=== PATIENT | male | born 1970 | race Caucasian/White ===

== ENCOUNTER → 2018-03-06 10:01 | Outpatient (CLI) | payer OTHER, SELFPAY ==
--- NOTE | 2018-03-06 10:03 | DI.RAD.S_ITS ---
PROCEDURE: XR FOOT LT MIN 3V INDICATIONS: pain left foot 1st MTP TECHNIQUE: 3 views of the foot were acquired. COMPARISON: None. FINDINGS: Bones: No fractures or dislocations. No suspicious bony lesions. Minimal narrowing at the first MTP joint is noted consistent with degenerative change. Soft tissues: No tibiotalar joint effusion. Achilles tendon appears normal. IMPRESSION: No visualized acute fracture or dislocation. However, if clinical concern and/or pain persist, short interval imaging followup in 7-10 days is recommended, as occult injury cannot be definitively excluded. Dictated by: Oly Potter M.D. on 03/06/2018 at 10:27 Approved by: Oly Potter M.D. on 03/06/2018 at 10:28
== END ==
PROVIDERS: PCP Physician Assistant
DX: M79.672 Pain in left foot (principal)
CPT/HCPCS: 73630

== ENCOUNTER → 2019-02-09 10:59 | Outpatient (CLI) | payer OTHER, SELFPAY ==
[2019-02-09 12:39] LABS: Alanine Aminotransferase 76 IU/L (21-72); Albumin 4.7 g/dL (3.5-5.0); Albumin Globulin Ratio 1.7 (1.0-2.8); Alkaline Phosphatase 58 U/L (38-126); Aspartate Aminotransferase 44 IU/L (17-59); Bilirubin Total 0.6 mg/dL (0.2-1.3); Bilirubin Unconjugated 0.5 mg/dL (0.0-1.1); Cholesterol 255 mg/dL (140-199); Globulin 2.8 g/dL (1.7-4.1); HDL Cholesterol 58 mg/dL (40-60); HEMOLYSIS < 15 (0-50); LDL Cholesterol Calculated 166 mg/dL (<100); Total Protein 7.5 g/dL (6.3-8.2); Triglycerides 156 mg/dL (35-150)
[2019-02-11 15:42] LABS: Hepatitis B Surf Ab Qualitativ Nonreactive (Nonreactive)
== END ==
PROVIDERS: Visit Provider Nurse Practitioner Family
DX: Z02.0 Encounter for examination for admission to educational institution (principal); R74.0 Nonspecific elevation of levels of transaminase and lactic acid dehydrogenase [LDH]; I10 Essential (primary) hypertension; Z13.6 Encounter for screening for cardiovascular disorders
CPT/HCPCS: 36415; 80061; 80076; 86706

== ENCOUNTER → 2019-02-24 14:11 | Outpatient (CLI) | payer OTHER, SELFPAY ==
[2019-02-24 14:04] VITALS: BMI 24.8
== END ==
PROVIDERS: Referring Provider Nurse Practitioner Family; Visit Provider Nurse Practitioner Family
DX: E78.5 Hyperlipidemia, unspecified (principal); Z71.3 Dietary counseling and surveillance; Z68.24 Body mass index [BMI] 24.0-24.9, adult
CPT/HCPCS: 97802

== ENCOUNTER → 2019-07-22 12:04 | Outpatient (CLI) | payer OTHER, SELFPAY ==
[2019-07-22 13:07] LABS: Alanine Aminotransferase 82 IU/L (21-72); Albumin 4.8 g/dL (3.5-5.0); Albumin Globulin Ratio 1.5 (1.0-2.8); Alkaline Phosphatase 68 U/L (38-126); Aspartate Aminotransferase 50 IU/L (17-59); Bilirubin Total 0.6 mg/dL (0.2-1.3); Bilirubin Unconjugated 0.4 mg/dL (0.0-1.1); Globulin 3.1 g/dL (1.7-4.1); HEMOLYSIS < 15 (0-50); Total Protein 7.9 g/dL (6.3-8.2)
== END ==
PROVIDERS: Visit Provider Nurse Practitioner Family
DX: R74.0 Nonspecific elevation of levels of transaminase and lactic acid dehydrogenase [LDH] (principal)
CPT/HCPCS: 36415; 80076

== ENCOUNTER 2019-09-21 08:48 | Emergency (ER) | payer OTHER, SELFPAY ==
[2019-09-21 08:50] VITALS: BP 146/102; PULSE 78; RESP 14; TEMP 36.4; O2SAT 98; BMI 25.7
--- NOTE | 2019-09-21 09:01 | DI.RAD.S_ITS ---
PROCEDURE: XR ANKLE RT MIN 3V INDICATIONS: R ankle pain x 2 weeks s/p ankle roll TECHNIQUE: 3 views of the ankle were acquired. COMPARISON: None. FINDINGS: Bones: No fractures or dislocations. Ankle mortise is normally aligned. No suspicious bony lesions. Soft tissues: No tibiotalar joint effusion. Achilles tendon appears normal. IMPRESSION: No fracture. If the patient's symptoms do not improve recommend followup radiographs in 10 days to assess for healing sclerosis/occult injury. Dictated by: Danielito Harper M.D. on 09/21/2019 at 9:24 Approved by: Danielito Harper M.D. on 09/21/2019 at 9:26
--- NOTE | 2019-09-21 09:36 | ED_ITS ---
HPI - Extremity Injury (Lower) General Chief Complaint: Extremity Injury, Lower Stated Complaint: sprain/fracture right ankle Time Seen by Provider: 09/21/19 09:25 Source: patient Mode of arrival: Ambulatory Limitations: no limitations History of Present Illness HPI Narrative: 48-year-old male here for evaluation of right ankle injury. He states that he initially injured his ankle several weeks ago. Has been wearing a ankle brace. States that things were getting well until last evening when he stood up and got a sudden pain on the outside of his right ankle. Has been icing and using the ankle brace prior to arrival. Related Data Allergies Allergy/AdvReac Type Severity Reaction Status Date / Time No Known Drug Allergies Allergy Verified 02/04/19 13:23 Review of Systems Constitutional Constitutional: Denies fever(s) Cardiovascular Cardiovascular: Denies chest pain and Denies dyspnea Respiratory Respiratory: Denies dyspnea Gastrointestinal Gastrointestinal: Denies abdominal pain Musculoskeletal Musculoskeletal: Denies tingling Comments: Right ankle pain Integumentary/Breasts Comments: No bruising Neurologic Neurologic: Denies tingling and Denies paresthesias Hematologic/Lymphatic Hematologic/Lymphatic: Denies easy bleeding and Denies easy bruising Patient History Medical History Essential hypertension (Inactive 2016) Social History Smoking Status: Current every day smoker Tobacco: How many years used: 25 second hand exposure: No alcohol intake: current substance use type: does not use alcohol intake frequency: a few times a week Alcohol type: hard liquor Substance Use Type: does not use Exam Initial Vital Signs Initial Vital Signs: Vital Signs Temperature 97.6 F 09/21/19 08:50 Pulse Rate 78 09/21/19 08:50 Respiratory Rate 14 09/21/19 08:50 Blood Pressure 146/102 H 09/21/19 08:50 Pulse Oximetry 98 09/21/19 08:50 Const General: cooperative and comfortable Orientation: alert and awake HENNC Head: normal to inspection and normocephalic Cardio Pulses: dorsalis pedis present on the right Skin Lesions: no lesions Rashes: no rashes Neuro Cognition: normal cognition Speech: speech normal Sensory Exam: no sensory deficits noted Extrem General: normal to inspection and capillary refill normal Other: Proximal fibula unremarkable. Achilles unremarkable on the right. Medial malleolus unremarkable on the right. Foot unremarkable on the right. Base of the 5th unremarkable on the right. Tenderness to palpation along the lateral malleolus on the right. Can flex and extend the ankle but with some discomfort Psych Appearance: grossly normal and well kempt Course Orders Ordered: ED Orders 09/21/19 09:01 XR ankle RT min 3V Stat Vital Signs Vital signs: Vital Signs - 8 hr 09/21/19 08:50 Temperature 97.6 F Pulse Rate 78 Respiratory Rate 14 Blood Pressure 146/102 H Pulse Oximetry 98 MDM - Extremity Injury (Lower) Imaging Data Ankle x-ray: Radiologist's impression: [address] [address] XRay Report Signed Patient: Toshia Flores#: [id number] : 1970Acct:[id number] Age/Sex: 48 / MDate of Service: 09/21/19 Loc: ED Accession Number: [id number] Procedure: XR ankle RT min 3V Ordering Provider: Luciano Jackson D.O. PROCEDURE: XR ANKLE RT MIN 3V INDICATIONS: R ankle pain x 2 weeks s/p ankle roll TECHNIQUE: 3 views of the ankle were acquired. COMPARISON: None. FINDINGS: Bones: No fractures or dislocations. Ankle mortise is normally aligned. No suspicious bony lesions. Soft tissues: No tibiotalar joint effusion. Achilles tendon appears normal. IMPRESSION: No fracture. If the patient's symptoms do not improve recommend followup radiographs in 10 days to assess for healing sclerosis/occult injury. Dictated by: Danielito Harper M.D. on 09/21/2019 at 9:24 Approved by: Danielito Harper M.D. on 09/21/2019 at 9:26 [facility] Narrative Medical decision making narrative: No fractures or dislocations. Patient is neurovascularly intact. He does have a home ankle brace which she is using. No indication for crutches. Patient given return precautions and follow-up instructions. He expressed understanding and agreement plan. Discharge Plan Departure Patient Disposition: Home Clinical Impression: Ankle sprain and strain Instructions: DI for Ankle Sprain, How To Perform RICE (Rest, Ice, Compress, Elevate), How to Apply an Elastic Wrap on Ankle Activity Restrictions/Additional Instructions: Contact your primary provider for follow-up. You can walk on your ankle as needed. Return to the emergency department for any new or worsening symptoms Referrals: Gabo Caba ARNP [Primary Care Provider] -
== END 2019-09-21 09:43 | disposition home or self-care (01) ==
PROVIDERS: Emergency Provider Emergency Medicine; PCP Nurse Practitioner Family
DX: S93.401A Sprain of unspecified ligament of right ankle, initial encounter (principal); X50.9XXA Other and unspecified overexertion or strenuous movements or postures, initial encounter
CPT/HCPCS: 73610; 99282; 99283

== ENCOUNTER → 2020-08-16 | Outpatient (CLI) | payer OTHER, SELFPAY | PROVIDERS: Referring Provider Internal Medicine; Visit Provider Internal Medicine | DX: Z23 Encounter for immunization (principal) | CPT/HCPCS: 90471; 90686 ==

== ENCOUNTER → 2021-07-17 12:22 | Outpatient (CLI) | payer OTHER, SELFPAY ==
[2021-07-17 15:55] LABS: COVID19 -Nasal RAPID Negative (Negative)
== END ==
PROVIDERS: Referring Provider Nurse Practitioner Family; Visit Provider Nurse Practitioner Family
DX: Z20.822 Contact with and (suspected) exposure to COVID-19 (principal); R05 Cough; R09.89 Other specified symptoms and signs involving the circulatory and respiratory systems; R43.2 Parageusia; R50.9 Fever, unspecified; R52 Pain, unspecified
CPT/HCPCS: 87635

== ENCOUNTER → 2021-09-22 19:50 | Outpatient (CLI) | payer OTHER, SELFPAY | PROVIDERS: Referring Provider Internal Medicine; Visit Provider Internal Medicine | DX: Z23 Encounter for immunization (principal) | CPT/HCPCS: 90471; 90686 ==

== ENCOUNTER → 2022-09-06 11:53 | Outpatient (CLI) | payer OTHER, SELFPAY | PROVIDERS: Referring Provider Internal Medicine; Visit Provider Internal Medicine | DX: Z23 Encounter for immunization (principal) | CPT/HCPCS: 90471; 90686 ==

== ENCOUNTER → 2023-08-05 14:39 | Outpatient (CLI) | payer OTHER, SELFPAY | PROVIDERS: Referring Provider Family Medicine; Visit Provider Family Medicine | DX: Z23 Encounter for immunization (principal) | CPT/HCPCS: 90471; 90686 ==

== ENCOUNTER 2023-11-19 01:23 | Emergency (ER) | payer OTHER, SELFPAY ==
[2023-11-19 01:26] VITALS: BP 179/100; PULSE 67; RESP 16; TEMP 37.2; O2SAT 99; BMI 24.4
[2023-11-19] MEDS: PROPARACAINE 0.5% OPHTH SOL 1 DROPS EYE-BOTH (01:41)
--- NOTE | 2023-11-19 01:50 | PC.NURSE ---
Poison Control Center contacted at 0150: pH of patient's eye is 8. Poison Control Center recommends 10 minute irrigation, followed by assessing eye for abrasion. It is reported that these particular [employer] wipes have a low concentration of cationic detergents in them which can causes burning and if patient rubs eyes they risk getting an abrasion. updated.
[2023-11-19] MEDS: FLUORESCEIN 1 MG STRIP EYE-LEFT (02:00)
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
[2023-11-19 02:20] VITALS: BP 156/98; PULSE 71; RESP 16; O2SAT 98
[2023-11-19] MEDS: ERYTHROMYCIN OPHTH 1 GM OINT 1 APPLIC EYE-BOTH (02:20)
== END 2023-11-19 02:20 | disposition home or self-care (01) ==
PROVIDERS: Emergency Provider Emergency Medicine
DX: T49.6X1A Poisoning by otorhinolaryngological drugs and preparations, accidental (unintentional), initial encounter (principal); T26.92XA Corrosion of left eye and adnexa, part unspecified, initial encounter; T79.9XXA Unspecified early complication of trauma, initial encounter; Y99.0 Civilian activity done for income or pay
CPT/HCPCS: 99282; 99283

== ENCOUNTER → 2024-01-17 08:53 | Outpatient (CLI) | payer OTHER, SELFPAY ==
[2024-01-17 10:01] LABS: Hemoglobin A1C% w Est Avg Glu 5.3 % (4.0-6.0)
[2024-01-17 10:05] LABS: Add Manual Diff / Slide Review NO; Basophils Absolute Auto 0 /uL (0-100); Basophils Percent Auto 0.4 % (0-2); Eosinophils Absolute Auto 200 /uL (0-450); Eosinophils Percent Auto 2.2 % (2-4); Hematocrit 46.1 % (41-53); Lymphocytes Absolute Auto 2200 /uL (1100-4500); Lymphocytes Percent Auto 24.5 % (25-40); Mean Corpuscular HGB Conc 34.8 % (30-36); Mean Corpuscular Hemoglobin 31.1 PG (26-34); Mean Corpuscular Volume 89.4 fL (80-100); Monocytes Absolute Auto 800 /uL (0-900); Monocytes Percent Auto 8.5 % (3-14); Neutrophils Absolute Auto 5900 /uL (1500-7000); Neutrophils Percent Auto 64.4 % (50-75); Platelet Count 278 X10^3/uL (150-400); Red Blood Cell Count 5.16 X10^6/uL (4.5-5.9); Red Cell Distribution Width 13.5 % (11.6-14.8); White Blood Cell Count 9.1 X10^3/uL (4.5-11.0)
[2024-01-17 10:20] LABS: Alanine Aminotransferase 25 IU/L (<50); Albumin 4.2 g/dL (3.5-5.0); Albumin Globulin Ratio 1.3 (1.0-2.8); Alkaline Phosphatase 65 U/L (38-126); Aspartate Aminotransferase 25 IU/L (17-59); BUN Creatinine Ratio 13.5 (6-22); Bilirubin Total 0.7 mg/dL (0.2-1.3); Blood Urea Nitrogen 13 mg/dL (9-20); Calcium 9.7 mg/dL (8.4-10.2); Carbon Dioxide 29 mmol/L (22-32); Chloride 104 mmol/L (98-107); Cholesterol 196 mg/dL (140-199); Estimated Glomerular Filt Rate > 60 mL/min (>60); Globulin 3.2 g/dL (1.7-4.1); Glucose 93 mg/dL (70-100); HDL Cholesterol 37 mg/dL (40-60); HEMOLYSIS < 15 (0-50); LDL Cholesterol Calculated 139 mg/dL (<100); Potassium 4.2 mmol/L (3.4-5.1); Sodium 140 mmol/L (137-145); Total Protein 7.4 g/dL (6.3-8.2); Triglycerides 101 mg/dL (35-150)
[2024-01-17 10:50] LABS: Prostate Specific Antigen Scrn 0.751 ng/mL (0.1-4.0)
[2024-01-17 10:51] LABS: TSH w/ Reflex to FT4 0.38 uIU/mL (0.47-4.68)
[2024-01-17 11:09] LABS: Vitamin B12 628 pg/mL (239-931)
[2024-01-17 11:11] LABS: Hep C Virus Ab w/Reflex Quant NEGATIVE s/c (NEGATIVE)
[2024-01-17 11:16] LABS: Free T4, Direct Thyroxine 0.98 ng/dL (0.78-2.19)
== END ==
PROVIDERS: PCP Family Medicine; Referring Provider Family Medicine; Visit Provider Family Medicine
DX: Z12.5 Encounter for screening for malignant neoplasm of prostate (principal); Z72.0 Tobacco use; E78.5 Hyperlipidemia, unspecified; R20.2 Paresthesia of skin
CPT/HCPCS: 36415; 80053; 80061; 82607; 83036; 84439; 84443; 85025; 86803; G0103

== ENCOUNTER → 2024-03-05 12:40 | Outpatient (CLI) | payer OTHER, SELFPAY | PROVIDERS: Family Provider Family Medicine; PCP Family Medicine; Referring Provider Family Medicine; Visit Provider Family Medicine | DX: R20.0 Anesthesia of skin (principal); M54.50 Low back pain, unspecified; G89.29 Other chronic pain | CPT/HCPCS: 95886; 95910 ==

== ENCOUNTER 2024-04-02 09:58 | Day surgery (SDC) | payer OTHER, SELFPAY ==
[2024-04-02 11:19] VITALS: BP 143/80; PULSE 48; RESP 17; TEMP 36.2; O2SAT 99
[2024-04-02] MEDS: LACTATED RINGERS 1,000 ML 42 ML IV (11:29)
--- NOTE | 2024-04-02 11:36 | P.HP_ITS ---
History of Present Illness History of Present Illness Date Patient Seen: 04/02/24 Time Patient Seen: 11:36 Chief complaint: Screening Colonoscopy Narrative: Srinivas is a 53-year-old man who is here for colonoscopy. He has never had one before. He has no known family history of colon cancer. No major health problems. [facility] Medical History (Updated 04/02/24 @ 11:37 by Rory Garcia MD) Allergies Migraines (~1999) Fractures (~1999) Chronic back pain (~2009) Chicken pox Essential hypertension (2017) Hyperlipidemia Surgical History (Updated 02/14/24 @ 20:17 by Caitlin Jose) Anesthesia S/P excision of lipoma (~2003) Family History (Updated 02/14/24 @ 20:21 by Caitlin Jose) Father Status post double vessel coronary artery bypass Diabetes mellitus History of heart disease Hyperlipidemia Hypertension Mother Diabetes mellitus Hypertension Grandfather History of heart disease Hyperlipidemia Hypertension Stroke Grandmother Cancer Grandfather Cancer History of heart disease Hyperlipidemia Hypertension Stroke Grandmother Cancer Dementia Social History Smoking Status: Current some day smoker Tobacco: How many years used: 25 second hand exposure: No alcohol intake: current substance use type: does not use Meds Home Medications and Allergies Home Medications Medication Instructions Recorded Confirmed Type No Known Home Medications 04/02/24 04/02/24 History Allergies Allergy/AdvReac Type Severity Reaction Status Date / Time No Known Drug Allergies Allergy Verified 01/17/24 08:24 Exam Vital Signs (past 8 hours): - 04/02/24 11:19 Temperature 97.2 F L Pulse Rate 48 L Respiratory Rate 17 Blood Pressure 143/80 H Pulse Oximetry 99 Oxygen Delivery Method Room Air Oxygen Delivery Method Room Air Const General: healthy appearing Resp Effort & Inspection: normal respiratory effort Assessment & Plan Assessment and plan (1) Colon cancer screening: Status: Acute Plan We reviewed the risks and benefits of colonoscopy for colon cancer screening and he would like to proceed.
--- NOTE | 2024-04-02 12:41 | PM.OP.COLON ---
Operative Date/Time/Diagnoses Date of procedure: 04/02/24 Time of procedure: 12:41 Pre-op diagnosis: Colon cancer screening Post-op diagnosis: same Procedure & Clinicians Study performed: Colon cancer screening Surgeon: Rory Garcia Procedure Notes Procedure in detail: Surgeon: Rory Garcia MD Anesthesia: Abigail Albert DO Procedure: The patient was brought to the endoscopy suite, placed in left lateral decubitus position. The patient was connected to monitoring devices. A time-out was performed. Sedation was administered. Once the patient was adequately sedated, a digital rectal exam was performed and was normal. The scope was then inserted and advanced to the cecum where the appendiceal orifice was identified and photographed. The scope was then slowly withdrawn over greater than 6 minutes. The mucosa was thoroughly inspected. No abnormalities were found. The scope was retroflexed in the rectum. No abnormalities were seen. The scope was straightened and removed. The patient was awakened and brought to recovery. Scope withdrawal time: 8 minutes Sedation time: 16 minutes EBL: 0 Findings: Normal colon Post-procedure Recommendations: Colonoscopy in 10 years Disposition: PACU
[2024-04-02 12:42] VITALS: BP 118/77; PULSE 56; RESP 18; TEMP 36.2; O2SAT 96
[2024-04-02 12:47] VITALS: BP 122/74; PULSE 51; RESP 16; O2SAT 98
[2024-04-02 13:00] VITALS: BP 119/76; PULSE 51; RESP 15; O2SAT 100
== END 2024-04-02 13:15 | disposition home or self-care (01) ==
PROVIDERS: Family Provider Family Medicine; PCP Family Medicine; Referring Provider Surgery; Visit Provider Surgery
PROC: 0DJD8ZZ Inspection of Lower Intestinal Tract, Via Natural or Artificial Opening Endoscopic (ICD-10-PCS; CPT 45378; principal; 2024-04-02 10:45)
DX: Z12.11 Encounter for screening for malignant neoplasm of colon (principal)
CPT/HCPCS: 45378; J2704

== ENCOUNTER → 2024-09-25 10:27 | Outpatient (CLI) | payer OTHER, SELFPAY ==
--- NOTE | 2024-09-25 10:29 | DI.RAD.S_ITS ---
PROCEDURE: XR ANKLE RT MIN 3V INDICATIONS: medial pain TECHNIQUE: 3 views of the ankle were acquired. COMPARISON: [facility], , XR ANKLE RT MIN 3V, 09/21/2019, 9:07. FINDINGS: No acute fracture or dislocation. The ankle mortise is preserved on the nonweightbearing view. No talar dome osteochondral defect. Small tibiotalar joint effusion. IMPRESSION: Small tibiotalar joint effusion. Otherwise, no acute radiographic abnormality of the right ankle. Dictated by: Nick Hernandez M.D. on 09/25/2024 at 13:11 Approved by: Nick Hernandez M.D. on 09/25/2024 at 13:13
== END ==
PROVIDERS: Family Provider Family Medicine; PCP Family Medicine; Referring Provider Family Medicine; Visit Provider Family Medicine
DX: M25.571 Pain in right ankle and joints of right foot (principal); M79.661 Pain in right lower leg; M25.471 Effusion, right ankle; M79.662 Pain in left lower leg
CPT/HCPCS: 73610

== ENCOUNTER → 2024-10-05 06:55 | Outpatient (CLI) | payer OTHER, SELFPAY ==
--- NOTE | 2024-10-05 06:56 | DI.US.S_ITS ---
PROCEDURE: US ARTERIAL DUPLEX LE BI INDICATIONS: PAIN WITH ACTIVITY / COLD FEELING TECHNIQUE: Color and pulse Doppler interrogation was performed of both lower extremity arterial systems, with image documentation. COMPARISON: None. FINDINGS: Right lower extremity: Common femoral artery: 90.6 cm/sec, with triphasic flow. Deep femoral artery: 52.3 cm/sec, with monophasic flow. Proximal superficial femoral artery: 93.2 cm/sec, with triphasic flow. Mid superficial femoral artery: 83.4 cm/sec, with triphasic flow. Distal superficial femoral artery: 46.5 cm/sec, with triphasic flow. Popliteal artery: 53.6 cm/sec, with triphasic flow. Posterior tibial artery: 74.6 cm/sec, with triphasic flow. Anterior tibial artery/dorsalis pedis: 36.8 cm/sec, with triphasic flow. Contreras-scale imaging description: No significant atheromatous disease Left lower extremity: Common femoral artery: 111.7 cm/sec, with triphasic flow. Deep femoral artery: 68.5 cm/sec, with triphasic flow. Proximal superficial femoral artery: 39 cm/sec, with triphasic flow. Mid superficial femoral artery: 75.4 cm/sec, with triphasic flow. Distal superficial femoral artery: 59.1 cm/sec, with triphasic flow. Popliteal artery: 48.5 cm/sec, with triphasic flow. Posterior tibial artery: 68 cm/sec, with triphasic flow. Anterior tibial artery/dorsalis pedis: 12.7 cm/sec, with monophasic flow. Contreras-scale imaging description: No significant atheromatous disease IMPRESSION: 1-19% stenosis of the left common femoral artery and the bilateral posterior tibial arteries. Dictated by: Kevin Skinner M.D. on 10/05/2024 at 11:01 Approved by: Kevin Skinner M.D. on 10/05/2024 at 11:05
== END ==
PROVIDERS: Family Provider Family Medicine; PCP Family Medicine; Referring Provider Family Medicine; Visit Provider Family Medicine
DX: M79.661 Pain in right lower leg (principal); M79.662 Pain in left lower leg
CPT/HCPCS: 93925

== ENCOUNTER → 2024-10-20 16:43 | Outpatient (CLI) | payer OTHER, SELFPAY ==
--- NOTE | 2024-10-20 16:45 | DI.MRI.S_ITS ---
PROCEDURE: MR ANKLE RT WO CON INDICATIONS: Internal derangement of ankle TECHNIQUE: Noncontrast sagittal T1 spin echo and T2 fast spin echo with fat saturation, axial proton density fast spin echo and T2 fast spin echo with fat saturation, coronal T1 spin echo and T2 fast spin echo with fat saturation through the ankle/hindfoot. COMPARISON: [facility], CR, XR ANKLE RT MIN 3V, 09/25/2024, 10:39. FINDINGS: Image quality: Excellent. Bones: The bone marrow signal is normal. The anterior process of the calcaneus and lateral process of the talus are intact. No talar dome osteochondral defect is seen. Joints: There is no significant joint effusion. Mild scattered midfoot osteoarthritis. Small osteophytes at the dorsal talar neck and anterior tibial plafond. Sinus tarsi: There is partial loss of the fat signal at the sinus tarsi. Syndesmotic ligaments: The anterior and posterior inferior syndesmotic ligaments are normal. Lateral collateral ligament: The lateral collateral ligaments are thickened with low signal, without a focal tear. There is also thickening of the accessory anterior-inferior tibiofibular ligament (6/7) with T1 hypointense tissue around the anterolateral gutter. Deltoid ligament: The visualized components of the deltoid ligament, that being the posterior tibiotalar and tibiospring ligaments, are normal. Calcaneonavicular spring ligament: The superomedial component of the calcaneonavicular spring ligament is grossly intact. Tendons: The Achilles tendon is normal. There is a split tear morphology of the peroneus brevis with distal reconstitution. The extensor, flexor and peroneal tendons are otherwise normal. The peroneal tendons are appropriately situated within the retromalleolar groove, and the superficial peroneal retinaculum is intact. Plantar aponeurosis: There is no abnormal thickening of, abnormal intrasubstance signal involving, or perifascial edema about the plantar aponeurosis. Plantar musculature: There are no findings of denervation involving the plantar muscles of the foot. Nerves: The visualized nerves are unremarkable. Other: No other acute abnormality. IMPRESSION: 1. Prior sprains of the lateral collateral ligament complex with thickening of the accessory anterior-inferior tibiofibular ligament, which can be seen with anterolateral ankle impingement pathology. 2. Dorsal talar neck and anterior tibial plafond osteophyte formation, which can be seen with anterior ankle impingement pathology. 3. Partial loss of the sinus tarsi fat, which can be seen with sinus tarsi syndrome. 4. Chronic peroneus brevis split tear. Dictated by: Nick Hernandez M.D. on 10/22/2024 at 16:23 Approved by: Nick Hernandez M.D. on 10/22/2024 at 16:31
== END ==
PROVIDERS: Family Provider Family Medicine; PCP Family Medicine; Referring Provider Orthopaedic Surgery Foot and Ankle Surgery; Visit Provider Orthopaedic Surgery Foot and Ankle Surgery
DX: S96.811A Strain of other specified muscles and tendons at ankle and foot level, right foot, initial encounter (principal); M19.071 Primary osteoarthritis, right ankle and foot; M24.9 Joint derangement, unspecified
CPT/HCPCS: 73721

== ENCOUNTER → 2025-05-11 15:44 | Outpatient (CLI) | payer OTHER, SELFPAY ==
--- NOTE | 2025-05-11 15:46 | DI.CT.S_ITS ---
PROCEDURE: CT LUNG LOW DOSE SCREENING INDICATIONS: screening TECHNIQUE: Noncontrast 2.0-2.5 mm thick sections acquired from the pulmonary apices to the posterior costophrenic angles. 7 mm thick axial MIP, and 5 mm coronal and sagittal reformats were then acquired. For radiation dose reduction, the following was used: automated exposure control, adjustment of mA and/or kV according to patient size. COMPARISON: None. FINDINGS: Image quality: Diagnostic. Lower Neck: No enlarged lymph nodes. Thyroid: No thyroid nodules which require sonographic follow up, per consensus guidelines. Axillae: No enlarged lymph nodes. Chest Wall: Unremarkable. Bones: Unremarkable. Lungs and Pleura: No pneumothorax or pleural effusions. No consolidation or suspicious nodules. Heart: Heart size is normal. No pericardial effusion. Thoracic Vessels: The aorta and pulmonary arteries demonstrate normal size. Mediastinum and Lara: No enlarged lymph nodes. Esophagus: No wall thickening. No hiatal hernia. Upper Abdomen: Visualized upper abdomen solid organs and bowel loops appear normal. IMPRESSION: No suspicious pulmonary nodules. LUNG-RADS 1; continued annual screening, if eligible. Clinically Significant Non-pulmonary Findings: None. Dictated by: Oly Potter M.D. on 05/12/2025 at 16:06 Approved by: Oly Potter M.D. on 05/12/2025 at 16:07
== END ==
LOC: CT 15:45
PROVIDERS: Family Provider Family Medicine; PCP Family Medicine; Referring Provider Family Medicine; Visit Provider Family Medicine
DX: Z12.2 Encounter for screening for malignant neoplasm of respiratory organs (principal); F17.210 Nicotine dependence, cigarettes, uncomplicated
CPT/HCPCS: 71271

== ENCOUNTER → 2025-10-11 08:06 | Outpatient (CLI) | payer OTHER, SELFPAY ==
[2025-10-11 08:28] LABS: Hematocrit 43.7 % (41-53); Hemoglobin 15.2 g/dL (13.5-17.5); Mean Corpuscular HGB Conc 34.7 % (30-36); Mean Corpuscular Hemoglobin 30.6 PG (26-34); Mean Corpuscular Volume 88.2 fL (80-100); Platelet Count 256 X10^3/uL (150-400)
[2025-10-11 09:03] LABS: Alanine Aminotransferase 22 IU/L (<50); Albumin 4.4 g/dL (3.5-5.0); Albumin Globulin Ratio 1.4 (1.0-2.8); Alkaline Phosphatase 49 U/L (38-126); Blood Urea Nitrogen 7 mg/dL (9-20); Calcium 9.0 mg/dL (8.4-10.2); Carbon Dioxide 26 mmol/L (22-32); Chloride 108 mmol/L (98-107); Cholesterol 210 mg/dL (140-199); Estimated Glomerular Filt Rate > 60 mL/min (>60); Globulin 3.2 g/dL (1.7-4.1); Glucose 96 mg/dL (70-99); HDL Cholesterol 38 mg/dL (40-60); HEMOLYSIS 28 (0-50); Potassium 4.3 mmol/L (3.4-5.1); Sodium 141 mmol/L (137-145); Total Protein 7.6 g/dL (6.3-8.2); Triglycerides 138 mg/dL (35-150)
[2025-10-11 09:46] LABS: TSH w/ Reflex to FT4 1.63 uIU/mL (0.47-4.68)
== END ==
PROVIDERS: Family Provider Family Medicine; PCP Family Medicine; Referring Provider Family Medicine; Visit Provider Family Medicine
DX: Z12.5 Encounter for screening for malignant neoplasm of prostate (principal); E78.5 Hyperlipidemia, unspecified; E05.90 Thyrotoxicosis, unspecified without thyrotoxic crisis or storm; F17.210 Nicotine dependence, cigarettes, uncomplicated
CPT/HCPCS: 36415; 80053; 80061; 84443; 85027; G0103